=== PATIENT | male | born 1945 | race Two or more races ===

== ENCOUNTER 2024-05-29 19:56 | Emergency (ER) | payer BC ==
[~2024-05-29] VITALS: Ht 182.9 cm; Wt 104.3 kg
[2024-05-29] MEDS ORDERED: LEVO75TA PO (21:10)
[2024-05-29] MEDS ORDERED: IBUPROFEN 600 MG TABLET ONE (22:01)
[2024-05-29] MEDS: IBUPROFEN 600 MG TABLET PO ONE (22:02)
[2024-05-29 23:10] VITALS: BP 140/77; TEMP 98; O2SAT 98
== END 2024-05-29 23:11 | disposition home or self-care (01) ==
LOC: ER 19:58
DX: M79.662 Pain in left lower leg (principal); E03.9 Hypothyroidism, unspecified; Z79.890 Hormone replacement therapy
CPT/HCPCS: A4606; A4663